=== PATIENT | female | born 1995 | race Caucasian/White ===

== ENCOUNTER 2016-11-29 12:39 | Inpatient (IN) | payer SELFPAY ==
[~2016-11-29] VITALS: Ht 170.2 cm; Wt 99.8 kg
[2016-11-29] VITALS (21 sets, daily range): BP systolic 109–172; BP diastolic 58–100
[2016-11-29 13:22] LABS: WHITE BLOOD COUNT 18.8 K/uL (4.1-10.2)
[2016-11-29 13:23] LABS: HEMATOCRIT 35.7 % (36.0-46.0); MCH 25.5 PG (29.0-34.0); MCHC 31.4 G/DL (30.0-36.0); MCV 81.1 FL (83-99); PLATELET COUNT 201 K/uL (156-360); RBC DIS.WIDTH-CV 14.6 % (11.8-14.6); RBC DIS.WIDTH-SD 42.5 % (39-53)
[2016-11-29 13:53] LABS: CHLORIDE 111 mEq/L (99-109); POTASSIUM 3.9 mEq/L (3.7-5.4); SODIUM 139 mEq/L (136-147)
[2016-11-29 13:55] LABS: GLUCOSE 86 mg/dL (70-99)
[2016-11-29 13:56] LABS: ANION GAP 10 MEQ/L (2-14)
[2016-11-29 13:57] LABS: TOTAL BILIRUBIN 0.4 mg/dL (0.0-1.0)
[2016-11-29 13:59] LABS: ALKALINE PHOSPHATASE 201 IU/L (3-129); GFR ESTIMATE (CALCULATED) > 59 mL/min/
[2016-11-29 14:00] LABS: UREA NITROGEN (BUN) 5 mg/dL (9-23)
[2016-11-29 15:16] LABS: FIBRINOGEN 398 mg/dL (150-450); INTER. NORMALIZED RATIO 0.9; PROTHROMBIN TIME 9.8 SEC (10.2-12.9)
[2016-11-29 15:18] LABS: PTT 26.1 SEC (25-37)
[2016-11-29 15:51] LABS: ADD MIUA? YES; BILIRUBIN NEGATIVE; BLOOD SMALL; COLOR YELLOW ((YELLOW)); GLUCOSE (STRIP) NEGATIVE; KETONES NEGATIVE; LEUKOCYTES NEGATIVE; NITRITE NEGATIVE; PROTEIN (STRIP) 30; SPECIFIC GRAVITY 1.018 (1.000-1.030); UROBILINOGEN 0.2 MG/DL (0.2-1.0)
[2016-11-29 15:54] LABS: ANTI-HIV (AIDS STAT TEST) NONREACTIVE; INTERNAL CONTROL VALID? YES
[2016-11-29 16:16] LABS: BACTERIA NONE SEEN /HPF; EPITHELIAL CELLS 1+ /HPF; MUCUS 2+ /LPF; RED BLOOD CELLS 0-5 /HPF (0-5); UCUL ADDED? NO; WHITE BLOOD CELLS 0-5 /HPF (0-5)
[2016-11-29 16:19] LABS: UR CREATININE CONCENTRATION 139.3 MG/DL
[2016-11-29 16:22] LABS: AMPHETAMINE NEGATIVE (500 ng/mL); BARBITURATES NEGATIVE (200 ng/mL); BENZODIAZEPINES NEGATIVE (150 ng/mL); COCAINE NEGATIVE (150 ng/mL); INTERNAL CONTROLS VALID? YES; METHADONE NEGATIVE (200 ng/mL); METHAMPHETAMINE NEGATIVE (500 ng/mL); OPIATES (MORPHINE) NEGATIVE (100 ng/mL); OXYCODONE NEGATIVE (100 ng/mL); PHENCYCLIDINE NEGATIVE (25 ng/mL); PROPOXYPHENE NEGATIVE (300 ng/mL); THC CANNABINOIDS PRESUMPTIVE POSITIVE (50 ng/mL); TRICYCLIC ANTIDEPRESSANTS NEGATIVE (300 ng/mL)
[2016-11-29 16:23] LABS: ADD MEDTOX COMMENT Y
[2016-11-29 16:31] LABS: DRSB INTERNAL CONTROL NO RESULT; PROBE CHECK NO RESULT; SPECIMEN PROCESSING CONTROL NO RESULT
[2016-11-29 16:51] LABS: MARIJUANA QUANT VALUE 0 NG/ML
[2016-11-29 17:55] LABS: DRSB INTERNAL CONTROL PASS; PROBE CHECK PASS; SPECIMEN PROCESSING CONTROL PASS
[2016-11-30] VITALS (10 sets, daily range): BP systolic 116–137; BP diastolic 70–91
[2016-11-30 03:02] LABS: EOSINOPHIL (%) 0 % (0-5); HEMATOCRIT 26.2 % (36.0-46.0); IMMATURE GRANULOCYTE (%) 0.8 % (0.0-0.7); IMMATURE GRANULOCYTE COUNT 0.2 K/uL; LYMPHOCYTE COUNT 1.7 K/uL (1.0-2.8); MCH 25.6 PG (29.0-34.0); MCHC 31.7 G/DL (30.0-36.0); MCV 80.9 FL (83-99); MEAN PLAT.VOLUME 13.9 uM^3 (9.5-12.4); MONOCYTE (%) 4.6 % (3-12); MONOCYTE COUNT 1.1 K/uL (0-0.8); NEUTROPHIL (%) 87.4 % (45-76); PLATELET COUNT 185 K/uL (156-360); RBC DIS.WIDTH-CV 14.6 % (11.8-14.6); RED BLOOD COUNT 3.24 M/uL (3.80-5.20); WHITE BLOOD COUNT 24.1 K/uL (4.1-10.2)
[2016-11-30 09:29] LABS: TREPONEMA ANTIBODY NEGATIVE (NEGATIVE)
[2016-11-30 10:54] LABS: HEMATOCRIT 23.1 % (36.0-46.0); MCHC 31.6 G/DL (30.0-36.0); MCV 82.2 FL (83-99); MEAN PLAT.VOLUME 13.9 uM^3 (9.5-12.4); PLATELET COUNT 153 K/uL (156-360); RBC DIS.WIDTH-CV 14.7 % (11.8-14.6); RBC DIS.WIDTH-SD 43.6 % (39-53); RED BLOOD COUNT 2.81 M/uL (3.80-5.20); WHITE BLOOD COUNT 17.5 K/uL (4.1-10.2)
[2016-11-30 11:05] LABS: HBSG INDEX 0.17; HIV INDEX 0.15; HIV-1/2 AB/AG COMBO Nonreactive
[2016-12-01] VITALS (7 sets, daily range): BP systolic 118–123; BP diastolic 66–74
[2016-12-01 10:38] LABS: EOSINOPHIL (%) 1.8 % (0-5); EOSINOPHIL COUNT 0.2 K/uL (0-0.3); HEMATOCRIT 19.1 % (36.0-46.0); IMMATURE GRANULOCYTE (%) 1.2 % (0.0-0.7); IMMATURE GRANULOCYTE COUNT 0.1 K/uL; INSTRUMENT ABS NEUTROPHIL CT 7.2 K/uL; LYMPHOCYTE COUNT 1.6 K/uL (1.0-2.8); MCH 26.8 PG (29.0-34.0); MCHC 31.9 G/DL (30.0-36.0); MCV 83.8 FL (83-99); MONOCYTE (%) 5.3 % (3-12); MONOCYTE COUNT 0.5 K/uL (0-0.8); NEUTROPHIL COUNT 7.2 K/uL (1.8-6.4); PLATELET COUNT 123 K/uL (156-360); RBC DIS.WIDTH-CV 15.4 % (11.8-14.6); RBC DIS.WIDTH-SD 46.6 % (39-53); RED BLOOD COUNT 2.28 M/uL (3.80-5.20); WHITE BLOOD COUNT 9.6 K/uL (4.1-10.2)
[2016-12-03 13:25] LABS: CHLAMYDIA TRACHOMATIS NEGATIVE; NEISSERIA GONORRHOEAE NEGATIVE
== END 2016-12-01 13:20 | disposition home or self-care (01) | DRG 774 ==
LOC: EME 12:39 → EDSTATUS 13:54 → LDRP-OP 13:57 → 2WEST 13:58
PROVIDERS: Advanced Practice Midwife; Nurse Practitioner Family; Obstetrics & Gynecology
PROC: 00HU33Z Insertion of Infusion Device into Spinal Canal, Percutaneous Approach (ICD-10-PCS; principal; 2016-11-29)
PROC: 0KQM0ZZ Repair Perineum Muscle, Open Approach (ICD-10-PCS; principal; 2016-11-29)
PROC: 10E0XZZ Delivery of Products of Conception, External Approach (ICD-10-PCS; principal; 2016-11-29)
PROC: 3E0R3CZ (ICD-10-PCS; principal; 2016-11-29)
PROC: 30233N1 Transfusion of Nonautologous Red Blood Cells into Peripheral Vein, Percutaneous Approach (ICD-10-PCS; principal; 2016-11-29)
PROC: 0UQC7ZZ Repair Cervix, Via Natural or Artificial Opening (ICD-10-PCS; 2016-11-30)
PROC: 0WQNXZZ Repair Female Perineum, External Approach (ICD-10-PCS; 2016-11-30)
PROC: 0KQM0ZZ Repair Perineum Muscle, Open Approach (ICD-10-PCS; 2016-11-30)
DX: O71.4 Obstetric high vaginal laceration alone (principal); D62 Acute posthemorrhagic anemia; O71.3 Obstetric laceration of cervix; O72.1 Other immediate postpartum hemorrhage; O13.4 Gestational [pregnancy-induced] hypertension without significant proteinuria, complicating childbirth; O16.4 Unspecified maternal hypertension, complicating childbirth; Z3A.37 37 weeks gestation of pregnancy; Z37.0 Single live birth; I10 Essential (primary) hypertension; O99.02 Anemia complicating childbirth; O69.82X0 Labor and delivery complicated by other cord entanglement, without compression, not applicable or unspecified
CPT/HCPCS: 76805; 80053; 81003; 82570; 84156; 84702; 84999; 85025; 85025 91; 85027; 85384; 85610; 85730; 86703; 86762; 86780; 86850; 86900; 86901; 86920; 87081; 87340; 87491; 87591; 87653; C1755; J0330; J0595; J0690; J2405; J3010; J7030; J7120; P9016; S0020

== ENCOUNTER 2017-06-10 20:30 | Emergency (ER) | payer OTHER ==
[~2017-06-10] VITALS: Ht 157.5 cm; Wt 98.5 kg
[2017-06-10 21:58] LABS: BILIRUBIN NEGATIVE; BLOOD NEGATIVE; GLUCOSE (STRIP) NEGATIVE; KETONES NEGATIVE; LEUKOCYTES NEGATIVE; NITRITE NEGATIVE; PROTEIN (STRIP) 30; SPECIFIC GRAVITY 1.023 (1.000-1.030)
[2017-06-10 21:59] LABS: COLOR DK YELLOW ((YELLOW))
[2017-06-10 22:00] LABS: APPEARANCE CLEAR ((CLEAR)); UCUL ADDED? NO
[2017-06-10 22:41] VITALS: BP 131/72
[2017-06-10] MEDS ORDERED: SKELAXIN800 MG PO (22:42)
[2017-06-10] MEDS ORDERED: LIDODERM 5% P1 PATCH TD (22:42)
[2017-06-10] MEDS ORDERED: MOTRIN800 MG PO (22:42)
== END 2017-06-10 22:50 | disposition home or self-care (01) ==
LOC: EME 20:30
DX: M54.9 Dorsalgia, unspecified (principal)
CPT/HCPCS: 81003; 84702; 99281; 99284; J1885

== ENCOUNTER 2017-10-05 09:10 | Inpatient (IN) | payer OTHER ==
[~2017-10-05] VITALS: Ht 157.5 cm; Wt 99.7 kg
[~2017-10-05 09:10] MED LIST: LIDODERM 5% P1 PATCH TD; MOTRIN800 MG PO; SKELAXIN800 MG PO
[2017-10-05 10:17] LABS: BASOPHIL (%) 0.2 % (0-1); EOSINOPHIL (%) 0.2 % (0-5); HEMATOCRIT 39.8 % (36.0-46.0); HEMOGLOBIN 12.8 G/DL (11.9-15.5); IMMATURE GRANULOCYTE (%) 0.2 % (0.0-0.7); LYMPHOCYTE (%) 9.5 % (15-42); LYMPHOCYTE COUNT 0.8 K/uL (1.0-2.8); MCH 26.2 PG (29.0-34.0); MCHC 32.2 G/DL (30.0-36.0); MCV 81.4 FL (83-99); MONOCYTE (%) 4.2 % (3-12); MONOCYTE COUNT 0.4 K/uL (0-0.8); NEUTROPHIL (%) 85.7 % (45-76); NEUTROPHIL COUNT 7.2 K/uL (1.8-6.4); PLATELET COUNT 208 K/uL (156-360); RBC DIS.WIDTH-CV 16.2 % (11.8-14.6); RBC DIS.WIDTH-SD 48.1 % (39-53); RED BLOOD COUNT 4.89 M/uL (3.80-5.20); WHITE BLOOD COUNT 8.4 K/uL (4.1-10.2)
[2017-10-05 10:33] LABS: APPEARANCE CLOUDY ((CLEAR)); BILIRUBIN NEGATIVE; BLOOD NEGATIVE; COLOR AMBER ((YELLOW)); GLUCOSE (STRIP) NEGATIVE; KETONES NEGATIVE; LEUKOCYTES TRACE; NITRITE NEGATIVE; PROTEIN (STRIP) NEGATIVE; SPECIFIC GRAVITY 1.015 (1.000-1.030)
[2017-10-05 11:05] LABS: ALBUMIN 4.1 G/DL (3.2-4.8); ALKALINE PHOSPHATASE 99 IU/L (3-129); ALT (GPT) 199 IU/L (3-49); AST (GOT) 345 IU/L (2-34); CHLORIDE 106 MEQ/L (99-109); CREATININE 0.7 MG/DL (0.6-1.3); GFR ESTIMATE (CALCULATED) > 59 mL/min/; GLUCOSE 113 mg/dL (70-99); LIPASE 20 U/L (1.0-51.0); POTASSIUM 3.9 MEQ/L (3.7-5.4); SODIUM 140 MEQ/L (136-147); TOTAL BILIRUBIN 3.4 MG/DL (0.0-1.0); UREA NITROGEN (BUN) 6 mg/dL (9-23)
[2017-10-05 11:12] LABS: EPITHELIAL CELLS 1+ /HPF; MUCUS RARE /LPF; RED BLOOD CELLS 0-5 /HPF (0-5); WHITE BLOOD CELLS 0-5 /HPF (0-5)
[2017-10-05 11:13] LABS: BACTERIA 1+ /HPF; TRIPLE PHOSPHATE CRYSTALS 1+ /HPF
[2017-10-05 15:27] VITALS: BP 132/70
[2017-10-05 20:09] VITALS: BP 129/71
[2017-10-05 23:38] VITALS: BP 127/68
[2017-10-06 04:10] VITALS: BP 132/65
[2017-10-06 06:23] LABS: HEMATOCRIT 38.4 % (36.0-46.0); HEMOGLOBIN 11.8 G/DL (11.9-15.5); MCH 25.2 PG (29.0-34.0); MCHC 30.7 G/DL (30.0-36.0); MCV 82.1 FL (83-99); PLATELET COUNT 205 K/uL (156-360); RBC DIS.WIDTH-CV 16.6 % (11.8-14.6); RBC DIS.WIDTH-SD 50.3 % (39-53); RED BLOOD COUNT 4.68 M/uL (3.80-5.20); WHITE BLOOD COUNT 5.8 K/uL (4.1-10.2)
[2017-10-06 06:47] LABS: ALBUMIN 3.7 G/DL (3.2-4.8); ALKALINE PHOSPHATASE 112 IU/L (3-129); ALT (GPT) 272 IU/L (3-49); AST (GOT) 200 IU/L (2-34); CHLORIDE 109 MEQ/L (99-109); CREATININE 0.7 MG/DL (0.6-1.3); DIRECT BILIRUBIN 0.3 mg/dL (0.0-0.3); GFR ESTIMATE (CALCULATED) > 59 mL/min/; GLUCOSE 95 mg/dL (70-99); POTASSIUM 4.1 MEQ/L (3.7-5.4); SODIUM 142 MEQ/L (136-147); UREA NITROGEN (BUN) 8 mg/dL (9-23)
[2017-10-06 06:51] LABS: TOTAL BILIRUBIN 1.1 MG/DL (0.0-1.0)
[2017-10-06 07:44] VITALS: BP 108/62
[2017-10-06] MEDS ORDERED: TRAMADOL HCL50 MG PO (08:24)
== END 2017-10-06 09:35 | disposition home or self-care (01) | DRG 445 ==
LOC: EME 09:10 → EDOF 12:36 → 2EAST 12:36 → ENRESERV 12:40 → 2EAST 15:18
PROVIDERS: Emergency Medicine; Internal Medicine
DX: K80.70 Calculus of gallbladder and bile duct without cholecystitis without obstruction (principal); E66.9 Obesity, unspecified; Z68.41 Body mass index [BMI] 40.0-44.9, adult; R74.0 Nonspecific elevation of levels of transaminase and lactic acid dehydrogenase [LDH]; K82.8 Other specified diseases of gallbladder
CPT/HCPCS: 74181; 76705; 80053; 81003; 82248; 83690; 85025; 85027; 99281; 99285; J1885; J2405; J7030; J7120

== ENCOUNTER 2017-10-24 10:52 | Day surgery (SDC) | payer OTHER ==
[~2017-10-24] VITALS: Ht 157.5 cm; Wt 99.7 kg
[~2017-10-24 10:52] MED LIST changes: +TRAMADOL HCL50 MG PO
[2017-10-24 11:16] VITALS: BP 133/86
[2017-10-24] MEDS ORDERED: DILAUDID4 MG PO (15:28)
[2017-10-24] MEDS ORDERED: ONDANSETRON HCL8 MG PO (15:28)
[2017-10-24] MEDS ORDERED: COLACE100 MG PO (15:28)
[2017-10-24 16:44] VITALS: BP 130/70
[2017-10-24 17:46] VITALS: BP 129/80
[2017-10-24 20:00] VITALS: BP 135/79
[2017-10-24 20:57] VITALS: BP 145/85
== END 2017-10-24 21:02 | disposition home or self-care (01) ==
LOC: SDC 10:52 → 2SOUTH 18:42 → ENRESERV 18:42 → 2SOUTH 18:42 → ENRESERV 19:05 → CANRESERV 19:05 → 2SOUTH 21:02
PROVIDERS: Surgery
DX: K80.10 Calculus of gallbladder with chronic cholecystitis without obstruction (principal); Z87.891 Personal history of nicotine dependence; Z68.41 Body mass index [BMI] 40.0-44.9, adult; Z82.49 Family history of ischemic heart disease and other diseases of the circulatory system; Z82.3 Family history of stroke
CPT/HCPCS: 74300; 81025; 88304; G0378; J0131; J0330; J0690; J1100; J1170; J2250; J2405; J2710; J2765; J3010; J7120; J7643; Q0175